=== PATIENT | male | born 1945 | race Caucasian/White ===

== ENCOUNTER → 2018-05-01 | Outpatient (CLI) | payer MEDICARE, OTHER | END | disposition home or self-care (01) | LOC: RADPV 09:35 | PROVIDERS: ATTEND Internal Medicine Cardiovascular Disease | DX: I08.3 Combined rheumatic disorders of mitral, aortic and tricuspid valves (principal); I50.1 Left ventricular failure, unspecified | CPT/HCPCS: 93306 ==

== ENCOUNTER → 2022-10-28 | Outpatient (CLI) | payer MEDICARE | END | disposition home or self-care (01) | LOC: RADPV 10:41 | PROVIDERS: ATTEND Internal Medicine Cardiovascular Disease | DX: I08.3 Combined rheumatic disorders of mitral, aortic and tricuspid valves (principal); I50.9 Heart failure, unspecified | CPT/HCPCS: 93306 ==

== ENCOUNTER 2023-08-21 14:57 | Inpatient (IN) | payer MEDICARE ==
[~2023-08-21] VITALS: Ht 177.8 cm; Wt 119.0 kg
[2023-08-21] MEDS ORDERED: 0.9% SODIUM CHLORIDE 10 ML SYRINGE IVP PRN (15:15)
[2023-08-21 15:41] LABS: HEMATOCRIT 26.7 % (41-53); HEMOGLOBIN 8.5 g/dL (13.5-17.5); MEAN CORPUSCULAR HEMOGLOBIN 29.1 pg (26.0-34.0); MEAN CORPUSCULAR HGB CONC 31.7 G/dL (31.0-37.0); MEAN CORPUSCULAR VOLUME 92 fL (80-100); RED BLOOD CELL COUNT(AUTO) 2.92 MIL/uL (4.50-5.90); RED CELL DISTRIBUTION WIDTH 18.7 % (11.5-14.5); WHITE BLOOD COUNT (AUTO) 5.8 K/uL (4.5-11.0)
[2023-08-21 15:42] LABS: COVID AG,FIA SOURCE NASAL SWAB
[2023-08-21] MEDS ORDERED: DOPamine 400MG/D5W[STANDARD] 250 ML IV ONE (15:43)
[2023-08-21] MEDS ORDERED: DOPamine 400MG/D5W[STANDARD] 250 ML IV PRN (15:45)
[2023-08-21 15:49] LABS: ANION GAP 10 mmol/L (8-16); CALCIUM, TOTAL 9.8 mg/dL (8.8-10.5); CARBON DIOXIDE 27 mmol/L (22-29); CHLORIDE 108 mmol/L (98-107); GLOMERULAR FILTR. RATE CALC 20 mL/min (>60); GLUCOSE,RANDOM 183 mg/dL (70-110); POTASSIUM 4.7 mmol/L (3.5-5.1); SODIUM SERUM 145 mmol/L (136-145); UREA NITROGEN, BLOOD 56 mg/dL (7-18)
[2023-08-21 15:53] LABS: INR 1.4 (0.9-1.1); PROTHROMBIN TIME 14.4 SEC (9.4-11.6)
[2023-08-21 15:53] LABS: APPEARANCE,URINE TURBID (CLEAR); BILIRUBIN,URINE NEGATIVE (NEGATIVE); COLOR,URINE LIGHT ORANGE (YELLOW); GLUCOSE, URINE (UA) NEGATIVE (NEGATIVE); KETONES,URINE NEGATIVE (NEGATIVE); LEUKOCYTE ESTERASE ,URINE LARGE (NEGATIVE); NITRATE,URINE NEGATIVE (NEGATIVE); OCCULT BLOOD,URINE LARGE (NEGATIVE); PH,URINE 8.5 (5.0-8.0); PROTEIN,URINE >600,SEE CONFIRM mg/dL (NEGATIVE); SPECIFIC GRAVITIY, URINE 1.014 (1.003-1.030); UROBILINOGEN,URINE <=1.0 mg/dL (<=1.0)
[2023-08-21 15:57] LABS: TROPONIN I-HIGH SENSITIVITY 23 ng/L (<76)
[2023-08-21 15:58] LABS: B-TYPE NATRIURETIC PEPTIDE 250 pg/mL (0-100)
[2023-08-21 16:06] LABS: INFLUENZA TYPE A NEGATIVE FOR TYPE A (NEGATIVE); INFLUENZA TYPE B NEGATIVE FOR TYPE B (NEGATIVE); SARS-COV2 (COVID) ANTIGEN,FIA Negative (Negative)
[2023-08-21 16:15] LABS: ALANINE AMINOTRANSFERASE 66 U/L (12-78); ALBUMIN 2.4 g/dL (3.4-5.0); ALKALINE PHOSPHATASE 142 U/L (46-116); ASPARTATE AMINOTRANSFERASE 81 U/L (15-37); BILIRUBIN,TOTAL 0.4 mg/dL (0.1-1.0); CREATINE KINASE, TOTAL ONLY 327 U/L (39-308); TOTAL PROTEIN, SERUM 6.9 g/dL (6.4-8.2)
[2023-08-21] MEDS ORDERED: PIPERACILLIN/TAZO 3.375 GM/D5W 50 ML IV ONE (16:15)
[2023-08-21] MEDS ORDERED: SODIUM CHLORIDE 0.9% 1,000 ML IV ONE (16:15)
[2023-08-21 16:27] LABS: SULFOSALICYLIC ACID,URINE 4+ (Negative)
[2023-08-21 16:30] LABS: WBC,URINE Full Field /HPF (0-5)
[2023-08-21 16:31] LABS: BACTERIA,URINE Many /HPF (None Seen)
[2023-08-21 16:41] LABS: PLATELET COUNT (AUTO) 47 K/uL (150-450)
[2023-08-21 16:42] LABS: PATHOLOGY REVIEW, DIFF YES
[2023-08-21 16:47] LABS: BAND NEUTROPHILS % (MANUAL) 16 % (0-5); LYMPHOCYTES % (MANUAL) 6 % (22-44); MONOCYTES % (MANUAL) 3 % (2-9); SEGMENTED NEUTROPHILS % 75 % (40-70); TOTAL CELLS COUNTED 100
[2023-08-21 16:48] LABS: PLATELET MORPHOLOGY COMMENT LARGE PLTS PRESENT
[2023-08-21] MEDS ORDERED: ACETAMINOPHEN 325 MG TABLET PO PRN ×2 (19:00→22:45)
[2023-08-21] MEDS ORDERED: NOREPINEPHRINE 8 MG/0.9 % NACL 250 ML IV PRN (19:00)
[2023-08-21] MEDS ORDERED: ONDANSETRON HCL 4 MG/2 ML VIAL IVP PRN (19:00)
[2023-08-21] MEDS ORDERED: *CLINICAL-CEFEPIME DOSING CLINICAL ONE (20:45)
[2023-08-21 20:49] LABS: TROPONIN I-HIGH SENSITIVITY 23 ng/L (<76)
[2023-08-21] MEDS ORDERED: VANCOMYCIN HCL 1.5 GM in DEXTROSE 5%-WATER 250 ML IV ONE (21:00)
[2023-08-21] MEDS ORDERED: VANCOMYCIN 1GM/WATER(PEG/NADA) 200 ML IV PRN (21:00)
[2023-08-21] MEDS ORDERED: PHENYLEPHRINE HCL IN 0.9% NACL 400 MCG/10 ML SYRINGE IVP ONE (21:10)
[2023-08-21 21:30] LABS: ABG A-A DIFF O2 166.1 mmHg (10-20.0); ABG BASE EXCESS -0.9 mmol/L (-2.0-3.0); ABG CARBOXYHEMOGLOBIN 0.7 % (0.0-1.5); ABG HCO3 23.7 mmol/L (22.0-26.0); ABG METHEMOGLOBIN 0.9 % (0.0-1.5); ABG OXYGEN SATURATION 98.5 % (95.0-98.0); ABG OXYHEMOGLOBIN 96.9 % (94.0-100.0); ABG PCO2 36 mmHg (35-45); ABG PH 7.427 (7.35-7.450); ABG TOTAL HEMOGLOBIN 9.4 G/dL (12.0-18.0); ALLEN TEST, BLOOD GAS Positive; O2 DEVICE,BLOOD GAS NASAL CANNULA (ROOM AIR); PO2, ARTERIAL BG 82.1 mmHg (75.0-83.0); SITE, BLOOD GAS RT RADIAL; SOURCE, BLOOD GAS ARTERIAL; TEMPERATURE, FAHRENHEIT, BG 89.2 FAHREN (96.0-98.6)
[2023-08-21 21:48] LABS: HEMOGLOBIN 8.3 g/dL (13.5-17.5); MEAN CORPUSCULAR HEMOGLOBIN 29.4 pg (26.0-34.0); MEAN CORPUSCULAR HGB CONC 32.1 G/dL (31.0-37.0); MEAN CORPUSCULAR VOLUME 92 fL (80-100); RED BLOOD CELL COUNT(AUTO) 2.84 MIL/uL (4.50-5.90); RED CELL DISTRIBUTION WIDTH 18.7 % (11.5-14.5); WHITE BLOOD COUNT (AUTO) 6.8 K/uL (4.5-11.0)
[2023-08-21] MEDS: PHENYLEPHRINE 200 MG/D5%-WATER 250 ML IV PRN (21:53)
[2023-08-21 22:29] LABS: PLATELET COUNT (AUTO) 50 K/uL (150-450)
[2023-08-21 22:30] LABS: BAND NEUTROPHILS % (MANUAL) 11 % (0-5); LYMPHOCYTES % (MANUAL) 9 % (22-44); MONOCYTES % (MANUAL) 5 % (2-9); PLATELET MORPHOLOGY COMMENT LARGE PLTS PRESENT; SEGMENTED NEUTROPHILS % 75 % (40-70); TOTAL CELLS COUNTED 100
[2023-08-21] MEDS: HEPARIN SODIUM,PORCINE 5,000 UNITS/ML VIAL SQ SCH (22:40)
[2023-08-21 23:45] LABS: GLUCOMETER DEV NAME(LOC) ER.6; GLUCOSE,POINT OF CARE 174 MG/DL (70-110)
[2023-08-21 23:49] VITALS: BP 123/53; PULSE 59; RESP 17; TEMP 90.7
[2023-08-22] VITALS: BP 123/53; PULSE 59; PULSE 61; RESP 16; TEMP 90.8
[2023-08-22] MEDS: CEFEPIME HCL 1 GM in DEXTROSE 5%-WATER 50 ML IV SCH ×3 (00:20→21:58)
[2023-08-22] MEDS ORDERED: SODIUM CHLORIDE 0.9% 250 ML IV ONE (00:24)
[2023-08-22] MEDS: NOREPINEPHRINE 8 MG/0.9 % NACL 250 ML IV PRN ×3 (02:57→15:27)
[2023-08-22 04:00] VITALS: BP 100/65; PULSE 60; RESP 23; TEMP 95.5
[2023-08-22 05:58] LABS: ABG BASE EXCESS -1.4 mmol/L (-2.0-3.0); ABG CARBOXYHEMOGLOBIN 0.8 % (0.0-1.5); ABG HCO3 23.4 mmol/L (22.0-26.0); ABG OXYGEN CONTENT 12.1 mL/dL (15.0-23.0); ABG OXYGEN SATURATION 91.9 % (95.0-98.0); ABG OXYHEMOGLOBIN 91.2 % (94.0-100.0); ABG PCO2 36 mmHg (35-45); ABG TOTAL HEMOGLOBIN 9.4 G/dL (12.0-18.0); PO2, ARTERIAL BG 57.1 mmHg (75.0-83.0); SOURCE, BLOOD GAS ARTERIAL; TEMPERATURE, FAHRENHEIT, BG 97.1 FAHREN (96.0-98.6)
[2023-08-22 05:59] LABS: ABG A-A DIFF O2 71.1 mmHg (10-20.0); ALLEN TEST, BLOOD GAS Positive; O2 DEVICE,BLOOD GAS NASAL CANNULA (ROOM AIR); SITE, BLOOD GAS RT RADIAL
[2023-08-22 06:05] LABS: POTASSIUM 4.7 mmol/L (3.5-5.1)
[2023-08-22 06:16] LABS: HEMOGLOBIN A1C 5.6 % (3.8-5.6)
[2023-08-22 06:44] LABS: ALBUMIN 2.2 g/dL (3.4-5.0); CALCIUM, TOTAL 9.2 mg/dL (8.8-10.5); CREATININE 2.72 mg/dL (0.60-1.30); TOTAL PROTEIN, SERUM 6.7 g/dL (6.4-8.2)
[2023-08-22 06:48] LABS: TROPONIN I-HIGH SENSITIVITY 55 ng/L (<76)
[2023-08-22 06:56] LABS: BILIRUBIN,TOTAL 0.5 mg/dL (0.1-1.0); MAGNESIUM 2.4 mg/dL (1.80-2.40)
[2023-08-22 08:00] VITALS: BP 102/48; PULSE 60; RESP 30; TEMP 98
[2023-08-22] MEDS: PANTOPRAZOLE SODIUM 40 MG/VIAL IVP SCH (09:10)
[2023-08-22] MEDS: HEPARIN SODIUM,PORCINE 5,000 UNITS/ML VIAL SQ SCH ×2 (09:10→21:56)
[2023-08-22 10:11] LABS: HEMATOCRIT 26.3 % (41-53); HEMOGLOBIN 8.6 g/dL (13.5-17.5); MEAN CORPUSCULAR HEMOGLOBIN 29.4 pg (26.0-34.0); MEAN CORPUSCULAR HGB CONC 32.6 G/dL (31.0-37.0); MEAN CORPUSCULAR VOLUME 90 fL (80-100); PLATELET COUNT (AUTO) 145 K/uL (150-450); RED BLOOD CELL COUNT(AUTO) 2.92 MIL/uL (4.50-5.90); RED CELL DISTRIBUTION WIDTH 18.3 % (11.5-14.5)
[2023-08-22 10:14] LABS: WHITE BLOOD COUNT (AUTO) 9.5 K/uL (4.5-11.0)
[2023-08-22] MEDS: PHENYLEPHRINE 200 MG/D5%-WATER 250 ML IV PRN (10:56)
[2023-08-22 11:01] LABS: TROPONIN I-HIGH SENSITIVITY 140 ng/L (<76)
[2023-08-22 11:06] LABS: BAND NEUTROPHILS % (MANUAL) 22 % (0-5); LYMPHOCYTES % (MANUAL) 8 % (22-44); MONOCYTES % (MANUAL) 3 % (2-9); RBC MORPHOLOGY COMMENT ABNORMAL RBC MORPH; SEGMENTED NEUTROPHILS % 67 % (40-70); TOTAL CELLS COUNTED 100
[2023-08-22 12:04] VITALS: BP 124/59; PULSE 60; RESP 26; TEMP 97.8
[2023-08-22 16:00] VITALS: BP 106/65; PULSE 60; RESP 29; TEMP 97.9
[2023-08-22 20:00] VITALS: BP 119/56; PULSE 61; RESP 23; TEMP 97.5
[2023-08-22] MEDS: CHLORHEXIDINE GLUCONATE 2% TOWELETTE [2'S/6'S] TP SCH (21:58)
[2023-08-23] VITALS: BP 120/80; PULSE 59; RESP 30; TEMP 97.5
[2023-08-23] MEDS: NOREPINEPHRINE 8 MG/0.9 % NACL 250 ML IV PRN ×3 (00:20→20:57)
[2023-08-23 01:46] LABS: APPEARANCE,URINE TURBID (CLEAR); BILIRUBIN,URINE NEGATIVE (NEGATIVE); COLOR,URINE LIGHT ORANGE (YELLOW); GLUCOSE, URINE (UA) NEGATIVE (NEGATIVE); KETONES,URINE NEGATIVE (NEGATIVE); LEUKOCYTE ESTERASE ,URINE MODERATE (NEGATIVE); NITRATE,URINE NEGATIVE (NEGATIVE); OCCULT BLOOD,URINE LARGE (NEGATIVE); PH,URINE 5.5 (5.0-8.0); PROTEIN,URINE 30-70 mg/dL (NEGATIVE); SPECIFIC GRAVITIY, URINE 1.016 (1.003-1.030); UROBILINOGEN,URINE <=1.0 mg/dL (<=1.0)
[2023-08-23 02:02] LABS: BACTERIA,URINE Few /HPF (None Seen); RBC,URINE 26-50 /HPF (0-2); SQUAMOUS EPITHELIAL CELL,UR Few /LPF (None Seen)
[2023-08-23 04:00] VITALS: BP 107/42; PULSE 60; RESP 21; TEMP 98.7
[2023-08-23 05:50] LABS: HEMATOCRIT 26.4 % (41-53); HEMOGLOBIN 8.4 g/dL (13.5-17.5); MEAN CORPUSCULAR HEMOGLOBIN 28.7 pg (26.0-34.0); MEAN CORPUSCULAR HGB CONC 31.8 G/dL (31.0-37.0); MEAN CORPUSCULAR VOLUME 90 fL (80-100); PLATELET COUNT (AUTO) 66 K/uL (150-450); RED BLOOD CELL COUNT(AUTO) 2.91 MIL/uL (4.50-5.90); RED CELL DISTRIBUTION WIDTH 18.7 % (11.5-14.5)
[2023-08-23 06:01] LABS: CALCIUM, TOTAL 9.4 mg/dL (8.8-10.5); CREATININE 2.99 mg/dL (0.60-1.30); POTASSIUM 5.3 mmol/L (3.5-5.1)
[2023-08-23 06:59] LABS: WHITE BLOOD COUNT (AUTO) 9.5 K/uL (4.5-11.0)
[2023-08-23 08:00] VITALS: BP 147/74; PULSE 60; RESP 20; TEMP 97
[2023-08-23] MEDS: VANCOMYCIN HCL 1.5 GM in DEXTROSE 5%-WATER 250 ML IV SCH (08:07)
[2023-08-23] MEDS: PANTOPRAZOLE SODIUM 40 MG/VIAL IVP SCH (08:08)
[2023-08-23] MEDS: HEPARIN SODIUM,PORCINE 5,000 UNITS/ML VIAL SQ SCH ×2 (08:08→22:26)
[2023-08-23 08:11] LABS: BAND NEUTROPHILS % (MANUAL) 7 % (0-5); LYMPHOCYTES % (MANUAL) 17 % (22-44); MONOCYTES % (MANUAL) 8 % (2-9); SEGMENTED NEUTROPHILS % 68 % (40-70); TOTAL CELLS COUNTED 100
[2023-08-23 09:54] LABS: TROPONIN I-HIGH SENSITIVITY 344 ng/L (<76)
[2023-08-23] MEDS: CEFEPIME HCL 1 GM in DEXTROSE 5%-WATER 50 ML IV SCH ×2 (10:15→22:25)
[2023-08-23 12:00] VITALS: BP 123/58; PULSE 60; RESP 17; TEMP 96.8
[2023-08-23 12:36] LABS: GLUCOSE,POINT OF CARE 83 MG/DL (70-110)
[2023-08-23 16:00] VITALS: BP 102/56; PULSE 60; RESP 21; TEMP 98.3
[2023-08-23 16:41] LABS: CALCIUM, TOTAL 9.2 mg/dL (8.8-10.5); CREATININE 2.86 mg/dL (0.60-1.30); POTASSIUM 4.8 mmol/L (3.5-5.1)
[2023-08-23 16:45] LABS: PHOSPHORUS 3.9 mg/dL (2.5-4.9)
[2023-08-23 20:00] VITALS: BP 100/56; PULSE 60; RESP 21; TEMP 97.6
[2023-08-23] MEDS ORDERED: SODIUM CHLORIDE 0.9% 250 ML IV ONE (20:34)
[2023-08-23] MEDS: CHLORHEXIDINE GLUCONATE 2% TOWELETTE [2'S/6'S] TP SCH (22:26)
[2023-08-24] VITALS: BP 112/53; PULSE 60; RESP 18; TEMP 97.5
[2023-08-24 04:00] VITALS: BP 119/57; PULSE 60; RESP 17; TEMP 97.4
[2023-08-24 06:27] LABS: CALCIUM, TOTAL 9.6 mg/dL (8.8-10.5); CREATININE 2.74 mg/dL (0.60-1.30); POTASSIUM 4.8 mmol/L (3.5-5.1)
[2023-08-24 07:13] LABS: HEMATOCRIT 25.4 % (41-53); HEMOGLOBIN 8.1 g/dL (13.5-17.5); MEAN CORPUSCULAR HEMOGLOBIN 28.6 pg (26.0-34.0); MEAN CORPUSCULAR HGB CONC 31.9 G/dL (31.0-37.0); MEAN CORPUSCULAR VOLUME 90 fL (80-100); PLATELET COUNT (AUTO) 62 K/uL (150-450); RED BLOOD CELL COUNT(AUTO) 2.83 MIL/uL (4.50-5.90); RED CELL DISTRIBUTION WIDTH 18.9 % (11.5-14.5); WHITE BLOOD COUNT (AUTO) 8.6 K/uL (4.5-11.0)
[2023-08-24 08:00] VITALS: BP 118/53; PULSE 60; RESP 17; TEMP 97.1
[2023-08-24] MEDS: PANTOPRAZOLE SODIUM 40 MG/VIAL IVP SCH (08:42)
[2023-08-24] MEDS: HEPARIN SODIUM,PORCINE 5,000 UNITS/ML VIAL SQ SCH ×2 (08:43→22:02)
[2023-08-24 09:02] LABS: BAND NEUTROPHILS % (MANUAL) 5 % (0-5); LYMPHOCYTES % (MANUAL) 20 % (22-44); METAMYELOCYTES % 1 % (0-0); MONOCYTES % (MANUAL) 10 % (2-9); MYELOCYTES % 1 % (0-0); SEGMENTED NEUTROPHILS % 63 % (40-70); TOTAL CELLS COUNTED 100
[2023-08-24 09:12] LABS: MAGNESIUM 2.7 mg/dL (1.80-2.40)
[2023-08-24] MEDS: CEFEPIME HCL 1 GM in DEXTROSE 5%-WATER 50 ML IV SCH ×2 (10:21→22:02)
[2023-08-24] MEDS: NOREPINEPHRINE 8 MG/0.9 % NACL 250 ML IV PRN (10:22)
[2023-08-24 12:00] VITALS: BP 112/57; PULSE 60; RESP 18; TEMP 97.8
[2023-08-24 16:00] VITALS: BP 110/48; PULSE 60; RESP 19; TEMP 97.8
[2023-08-24] MEDS: MIDODRINE HCL 5 MG TABLET NG SCH ×2 (16:28→21:30)
[2023-08-24 20:00] VITALS: BP 123/62; PULSE 55; PULSE 60; RESP 16; TEMP 98.6
[2023-08-24] MEDS: CHLORHEXIDINE GLUCONATE 2% TOWELETTE [2'S/6'S] TP SCH (22:02)
[2023-08-25] VITALS: BP 117/56; PULSE 60; RESP 16; TEMP 97.4
[2023-08-25 04:00] VITALS: BP 106/55; PULSE 60; RESP 16; TEMP 96.3
[2023-08-25 06:43] LABS: CALCIUM, TOTAL 9.3 mg/dL (8.8-10.5); CREATININE 2.24 mg/dL (0.60-1.30); POTASSIUM 4.4 mmol/L (3.5-5.1); VANCOMYCIN,RANDOM 14.1 mcg/mL (25.0-50.0)
[2023-08-25] MEDS: PANTOPRAZOLE SODIUM 40 MG/VIAL IVP SCH (07:59)
[2023-08-25] MEDS: VANCOMYCIN HCL 1.5 GM in DEXTROSE 5%-WATER 250 ML IV SCH (07:59)
[2023-08-25 08:00] VITALS: BP 110/48; PULSE 60; RESP 20; TEMP 97.6
[2023-08-25] MEDS: HEPARIN SODIUM,PORCINE 5,000 UNITS/ML VIAL SQ SCH ×2 (08:00→20:42)
[2023-08-25] MEDS: MIDODRINE HCL 5 MG TABLET NG SCH ×3 (08:00→20:42)
[2023-08-25] MEDS: CEFEPIME HCL 1 GM in DEXTROSE 5%-WATER 50 ML IV SCH (11:11)
[2023-08-25 12:00] VITALS: BP 99/46; PULSE 60; RESP 24; TEMP 99
[2023-08-25] MEDS: SODIUM CHLORIDE 0.45% 1,000 ML IV SCH (12:51)
[2023-08-25 16:00] VITALS: BP 114/52; PULSE 60; RESP 18; TEMP 98.2
[2023-08-25 20:00] VITALS: BP 104/45; PULSE 60; RESP 18; TEMP 97.9
[2023-08-25] MEDS: CHLORHEXIDINE GLUCONATE 2% TOWELETTE [2'S/6'S] TP SCH (21:29)
[2023-08-25] MEDS: CEFEPIME HCL 2 GM in DEXTROSE 5%-WATER 50 ML IV SCH (21:29)
[2023-08-26] VITALS: BP 114/54; PULSE 60; RESP 20; TEMP 98
[2023-08-26] MEDS: SODIUM CHLORIDE 0.45% 1,000 ML IV SCH (01:55)
[2023-08-26 04:00] VITALS: BP 121/59; PULSE 60; RESP 18; TEMP 97
[2023-08-26 06:00] LABS: BASOPHILS % (AUTO) 0.2 % (0.0-2.0); HEMATOCRIT 24.4 % (41-53); HEMOGLOBIN 7.6 g/dL (13.5-17.5); LYMPHOCYTES # (AUTO) 1.1 K/uL (1.0-4.8); LYMPHOCYTES % (AUTO) 11.8 % (22.0-44.0); MEAN CORPUSCULAR HEMOGLOBIN 28.6 pg (26.0-34.0); MEAN CORPUSCULAR HGB CONC 31.3 G/dL (31.0-37.0); MEAN CORPUSCULAR VOLUME 92 fL (80-100); MONOCYTES # (AUTO) 0.9 K/uL (0.1-1.0); MONOCYTES % (AUTO) 9.8 % (2.0-9.0); NEUTROPHILS # (AUTO) 6.8 K/uL (1.8-7.7); NEUTROPHILS % (AUTO) 75.2 % (40.0-70.0); PLATELET COUNT (AUTO) 57 K/uL (150-450); RED BLOOD CELL COUNT(AUTO) 2.67 MIL/uL (4.50-5.90); RED CELL DISTRIBUTION WIDTH 18.7 % (11.5-14.5); WHITE BLOOD COUNT (AUTO) 9.1 K/uL (4.5-11.0)
[2023-08-26 06:10] LABS: MAGNESIUM 2.2 mg/dL (1.80-2.40); PHOSPHORUS 3.5 mg/dL (2.5-4.9)
[2023-08-26 06:14] LABS: CALCIUM, TOTAL 9.2 mg/dL (8.8-10.5); CREATININE 1.89 mg/dL (0.60-1.30); POTASSIUM 4.3 mmol/L (3.5-5.1)
[2023-08-26] MEDS: VANCOMYCIN 1GM/WATER(PEG/NADA) 200 ML IV SCH (07:40)
[2023-08-26] MEDS: PANTOPRAZOLE SODIUM 40 MG/VIAL IVP SCH (07:41)
[2023-08-26] MEDS: HEPARIN SODIUM,PORCINE 5,000 UNITS/ML VIAL SQ SCH ×2 (07:42→20:31)
[2023-08-26] MEDS: MIDODRINE HCL 5 MG TABLET NG SCH ×3 (07:42→20:31)
[2023-08-26 08:00] VITALS: BP 112/56; PULSE 60; RESP 18; TEMP 97.2
[2023-08-26] MEDS ORDERED: EPOETIN ALFA 10,000 UNITS/ML VIAL SQ SCH (09:00)
[2023-08-26] MEDS: CEFEPIME HCL 2 GM in DEXTROSE 5%-WATER 50 ML IV SCH ×2 (11:21→21:26)
[2023-08-26 12:00] VITALS: BP 119/56; PULSE 60; RESP 26; TEMP 99
[2023-08-26 16:00] VITALS: BP 126/54; PULSE 60; RESP 25; TEMP 99.7
[2023-08-26 20:11] VITALS: BP 124/60; PULSE 60; RESP 18; TEMP 98.6
[2023-08-26] MEDS: CHLORHEXIDINE GLUCONATE 2% TOWELETTE [2'S/6'S] TP SCH (21:26)
[2023-08-27] MEDS: SODIUM CHLORIDE 0.45% 1,000 ML IV SCH (01:13)
[2023-08-27 03:59] VITALS: BP 127/60; PULSE 60; RESP 18; TEMP 98.9
[2023-08-27 07:38] LABS: CALCIUM, TOTAL 9.2 mg/dL (8.8-10.5); CREATININE 1.79 mg/dL (0.60-1.30); MAGNESIUM 2.2 mg/dL (1.80-2.40); PHOSPHORUS 3.3 mg/dL (2.5-4.9); POTASSIUM 4.6 mmol/L (3.5-5.1)
[2023-08-27 08:00] VITALS: BP 127/61; PULSE 60; RESP 20; TEMP 98.1
[2023-08-27] MEDS: MIDODRINE HCL 5 MG TABLET NG SCH (08:34)
[2023-08-27] MEDS: HEPARIN SODIUM,PORCINE 5,000 UNITS/ML VIAL SQ SCH (08:34)
[2023-08-27] MEDS: PANTOPRAZOLE SODIUM 40 MG/VIAL IVP SCH (08:34)
[2023-08-27] MEDS: VANCOMYCIN 1GM/WATER(PEG/NADA) 200 ML IV SCH (08:34)
== END 2023-08-27 11:20 | DRG 871 ==
LOC: EMS 15:04 → ICUN 19:04 → ICU 20:21 → 6S 08-26 17:23
PROVIDERS: ADMIT Internal Medicine; ATTEND Family Medicine
DX: A41.9 Sepsis, unspecified organism (principal); G93.41 Metabolic encephalopathy; N17.0 Acute kidney failure with tubular necrosis; J18.9 Pneumonia, unspecified organism; R65.21 Severe sepsis with septic shock; J44.0 Chronic obstructive pulmonary disease with (acute) lower respiratory infection; N39.0 Urinary tract infection, site not specified; I42.9 Cardiomyopathy, unspecified; E87.0 Hyperosmolality and hypernatremia; Z66 Do not resuscitate; Z20.822 Contact with and (suspected) exposure to COVID-19; N18.9 Chronic kidney disease, unspecified; E11.22 Type 2 diabetes mellitus with diabetic chronic kidney disease; I50.9 Heart failure, unspecified; F03.90 Unspecified dementia, unspecified severity, without behavioral disturbance, psychotic disturbance, mood disturbance, and anxiety; I48.0 Paroxysmal atrial fibrillation; D64.9 Anemia, unspecified; E11.51 Type 2 diabetes mellitus with diabetic peripheral angiopathy without gangrene; D69.6 Thrombocytopenia, unspecified; I35.0 Nonrheumatic aortic (valve) stenosis; E88.09 Other disorders of plasma-protein metabolism, not elsewhere classified; N28.89 Other specified disorders of kidney and ureter; Z85.46 Personal history of malignant neoplasm of prostate; Z88.0 Allergy status to penicillin; Z88.1 Allergy status to other antibiotic agents; Z95.0 Presence of cardiac pacemaker
CPT/HCPCS: 36600; 70450; 71045; 74176; 76770; 80048; 80053; 80202; 81001; 81002; 82550; 82805; 82962; 83036; 83605; 83735; 83880; 84100; 84145; 84484; 85025; 85610; 86850; 86900; 86901; 87040; 87081; 87086; 87186; 87804; 92610; 93005; 93306; 99285; C9113; J0692; J0885; J1265; J1644; J2370; J2543; J3370; J7050; J7060; Q9967; 36415-L1; 36415-TC